=== PATIENT | female | born 1990 | race Caucasian/White ===

== ENCOUNTER 2016-11-07 11:42 | Observation (INO) | payer OTHER ==
[~2016-11-07] VITALS: Ht 162.6 cm; Wt 120.1 kg
[2016-11-07] MEDS ORDERED: 0.9% Sodium Chloride 1,000 ML IV ONE (11:51)
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
[2016-11-07] MEDS ORDERED: Ondansetron 2 mg/mL 2 mL Inj IVPUSH PRN (11:55)
[2016-11-07] MEDS: HYDROmorphone 1 mg/mL Inj IVPUSH PRN ×2 (12:05→13:59)
[2016-11-07 12:21] LABS: BASOPHILS % (AUTO) 0.1 % (0-3); EOSINOPHILS % (AUTO) 0.6 % (0-5); MONOCYTES % (AUTO) 6.5 % (4-12); Mean Corpuscular Hemoglobin 31.3 pg (27.0-35.0); Mean Corpuscular Volume 90.8 fL (81-100); NEUTROPHILS % (AUTO) 66.3 % (40-74); Platelet Count 252 bil/L (150-400)
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
[2016-11-07 15:24] LABS: APPEARANCE,URINE CLEAR (CLEAR,HAZY); COLOR,URINE YELLOW (YELLOW); PH,URINE 5.5 (5.0-8.0)
[2016-11-07 15:25] LABS: OCCULT BLOOD,URINE LARGE (NEGATIVE); UROBILINOGEN,URINE NORMAL (NORMAL)
[2016-11-07 16:02] LABS: Lipase 63 U/L (13-60)
[2016-11-07] MEDS ORDERED: MetoCLOpramide 5 mg/mL 2 mL Inj IVPUSH PRN (16:10)
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
[2016-11-07] MEDS ORDERED: HYDR-4003 PO (16:31)
[2016-11-07] MEDS ORDERED: CYCL10TA9 PO (16:31)
[2016-11-07] MEDS ORDERED: AGM875T PO (16:31)
[2016-11-07] MEDS: HYDROcodone-APAP 5-325 mg Tablet PO PRN ×3 (16:31→22:06)
[2016-11-07] MEDS ORDERED: Bacitracin Ointment Packet TOPICAL ONE (16:35)
[2016-11-07 17:32] VITALS: BP 116/77; PULSE 69; RESP 18; O2SAT 98
[2016-11-07] MEDS: Dextrose 5% Lactated Ringer's 1,000 ML IV SCH (18:41)
[2016-11-07] MEDS: Polyethylene Glycol (PEG) 17 Gm Powder PO SCH (18:41)
[2016-11-07 19:22] VITALS: BP 127/83; PULSE 67; RESP 18; O2SAT 98
[2016-11-07] MEDS: Amoxicillin-Clav 875-125 mg Tablet PO SCH (22:05)
[2016-11-07] MEDS: Ondansetron 2 mg/mL 2 mL Inj IVPUSH PRN (22:11)
[2016-11-08] VITALS (16 sets, daily range): BP systolic 102–151; BP diastolic 53–89; PULSE 71–89; RESP 12–22; O2SAT 92–99
[2016-11-08] MEDS: Ondansetron 2 mg/mL 2 mL Inj IVPUSH PRN ×3 (02:13→14:41)
[2016-11-08] MEDS: HYDROmorphone 1 mg/mL Inj IVPUSH PRN ×4 (02:16→14:33)
[2016-11-08] MEDS: Dextrose 5% Lactated Ringer's 1,000 ML IV SCH ×3 (05:26→22:06)
[2016-11-08] MEDS ORDERED: Vancomycin Inj 1,000 MG in IV Premix 1 EACH IV ONE ×2 (06:00→15:45)
[2016-11-08] MEDS: Amoxicillin-Clav 875-125 mg Tablet PO SCH ×2 (08:21→22:46)
[2016-11-08] MEDS: HYDROcodone-APAP 5-325 mg Tablet PO PRN (08:22)
[2016-11-08 09:55] LABS: BASOPHILS % (AUTO) 0.1 % (0-3); EOSINOPHILS % (AUTO) 0.7 % (0-5); MONOCYTES % (AUTO) 7.8 % (4-12); Mean Corpuscular Volume 90.5 fL (81-100); NEUTROPHILS % (AUTO) 71.5 % (40-74); Platelet Count 219 bil/L (150-400)
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
--- NOTE | 2016-11-08 14:41 | CONS ---
[address] [address] CONSULTATION REPORT PATIENT: MIGUELITO MIRAMONTES : 1990 MR#: [id number] ADMIT: 11/07/2016 JOB ID: [id number] DATE OF SERVICE: 11/08/2016 This is 26-year-old female who was admitted overnight since she did have some fluid around the head of her pancreas. She was also slow to mobilize since she had injuries on both lower extremities with a right ankle sprain, chip avulsion off the medial 1st metatarsal on the right and left ankle bimalleolar equivalent fracture. I have obtained preoperative clearance from General Surgery. Since the patient is still in the hospital, we will try to proceed with surgery today and this will depend upon any other emergencies that may come in. I have explained the risks for bleeding, infection, pain, and stiffness, possibility for damage to surrounding neurovascular structures, potential for delayed union, nonunion, malunion, hardware failure, as well as potential for requirement for hardware removal if need be. She may also have a syndesmosis injury and this will be evaluated intraoperatively once the lateral malleolus is fixed. If she requires a syndesmosis screw, then I would opt to take that out somewhere between 3-4 months. Surgical consent has been signed. CC: [facility]
[2016-11-08] MEDS ORDERED: Lactated Ringer's 1,000 ML IV ONE ×2 (15:54→19:10)
[2016-11-08] MEDS ORDERED: Lactated Ringer's 1,000 ML IV SCH (16:20)
[2016-11-08] MEDS ORDERED: Ondansetron 2 mg/mL 2 mL Inj IVPUSH PRN ×2 (16:20→18:55)
[2016-11-08] MEDS ORDERED: EPHEDrine Sulfate 50 mg/mL Inj IVPUSH PRN (16:20)
[2016-11-08] MEDS ORDERED: Phenylephrine 10,000 mCg/mL Inj IVPUSH PRN (16:20)
[2016-11-08] MEDS ORDERED: MetoCLOpramide 5 mg/mL 2 mL Inj IVPUSH PRN (16:20)
[2016-11-08] MEDS ORDERED: Lactated Ringer's 500 ML IV PRN (16:20)
[2016-11-08] MEDS ORDERED: HYDROmorphone 1 mg/mL Inj IVPUSH PRN (16:20)
[2016-11-08] MEDS ORDERED: Labetalol 5 mg/mL 20 mL Inj IV PRN (16:20)
[2016-11-08] MEDS ORDERED: fentaNYL-PF 50 mCg/mL 2 mL Inj IVPUSH PRN (16:20)
[2016-11-08] MEDS ORDERED: Atropine 0.4 mg/mL Inj IVPUSH PRN (16:20)
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
[2016-11-08] MEDS ORDERED: Bupivacaine-MPF 0.5% 30 mL Inj INJ ONE (16:32)
[2016-11-08] MEDS ORDERED: Ondansetron 2 mg/mL 2 mL Inj ONE (16:37)
[2016-11-08] MEDS ORDERED: fentaNYL-PF 50 mCg/mL 2 mL Inj ONE (16:37)
[2016-11-08] MEDS ORDERED: MetoCLOpramide 5 mg/mL 2 mL Inj ONE (16:37)
[2016-11-08] MEDS ORDERED: Propofol 10,000 mCg/mL 20 mL Inj ONE (16:37)
[2016-11-08] MEDS ORDERED: Dexamethasone 4 mg/mL Inj ONE (16:37)
[2016-11-08] MEDS ORDERED: HYDROmorphone 1 mg/mL Inj ONE (16:37)
[2016-11-08] MEDS ORDERED: Sodium Biphos-Phos 133 mL Enema RECTAL PRN (18:55)
[2016-11-08] MEDS ORDERED: Polyethylene Glycol (PEG) 17 Gm Powder PO PRN (18:55)
[2016-11-08] MEDS ORDERED: diphenhydrAMINE 25 mg Capsule PO PRN (18:55)
[2016-11-08] MEDS ORDERED: Vancomycin Dose per Pharmacist XX ONE (18:55)
[2016-11-08] MEDS ORDERED: Magnesium Hydroxide 10 mL Oral Concentration PO PRN (18:55)
[2016-11-08] MEDS: 0.9% Sodium Chloride 1,000 ML IV SCH (18:55)
[2016-11-08] MEDS ORDERED: hydrOXYzine Inj 50 MG/1 mL SDV IM ONE (19:30)
--- NOTE | 2016-11-08 19:30 | PCM.ANEP1 ---
Post Anesthesia PACU Phase 1 Assessment Vital Signs Vital Signs Date Time Temp Pulse Resp B/P Pulse Ox O2 Delivery O2 Flow Rate FiO2 11/08/16 19:20 77 12 115/76 99 Nasal Cannula 3 11/08/16 19:15 36.1 72 12 113/66 98 Nasal Cannula 3 11/08/16 19:10 72 12 122/62 95 Nasal Cannula 3 11/08/16 19:05 73 14 117/89 95 Nasal Cannula 3 11/08/16 19:01 74 14 118/63 95 Nasal Cannula 3 11/08/16 18:55 71 22 151/87 92 Room Air 11/08/16 18:50 84 22 124/67 92 Room Air 11/08/16 18:47 37.1 88 22 125/71 92 Room Air 11/08/16 12:22 36.7 72 18 121/77 97 Room Air Anesthetic Administered: GA Level of Alertness: Awake, talking GONZALES's with Equal Strength: Yes Pain: Yes Pain Scale Score: 6 Nausea or Vomiting: Yes (getting IM vistaril/ephedrine in PACU) CV Function & Hydration Stable: Yes Airway Device: n/a Oxygen Delivery: Room Air Lungs: Clear to Auscultation, Diminished Dermatome Level: Full Sensation PACU Phase 2 Assessment Complications: No Follow up Care: N/A Patient Instructions Provided: N/A Jaycob Radford MD Nov 08, 2016 19:30
[2016-11-08] MEDS ORDERED: HYDROmorphone 0.5 mg/0.5 mL iSecure Syringe IVPUSH PRN (19:50)
--- NOTE | 2016-11-08 21:36 | DRSVH ---
PROCEDURE: X-RAY LEFT ANKLE, TWO VIEWS ([id number]) INDICATIONS: LEFT ANKLE ORIF REPAIR TECHNIQUE: 3 views of the ankle were acquired. COMPARISON: [facility], CR, XR ANKLE 3VW LT, 11/07/2016, 11:57. FINDINGS: 3 intraoperative fluoroscopic views demonstrate ORIF of the previously described fibular fracture wit h a lateral fixation plate and multiple fixation screws. There is also a screw traversing the distal tibiofibular syndesmosis. IMPRESSION: 1. Intraoperative fluoroscopy provided for ORIF of left fibular fracture. Dictated by: Hakeem Ventura M.D. on 11/08/2016 at 21:33 Approved by: Hakeem Ventura M.D. on 11/08/2016 at 21:34
--- NOTE | 2016-11-08 21:38 | DRSVH ---
PROCEDURE: X-RAY LEFT ANKLE, MINIMUM THREE VIEWS ([id number]) INDICATIONS: Post operation ankle fracture ORIF TECHNIQUE: 3 views of the ankle were acquired. COMPARISON: [facility], CR, XR ANKLE 3VW LT, 11/07/2016, 11:57. [facility], CR, XR ANKLE 2VW LT, 11/08/2016, 17:55. FINDINGS: Bones: There are postsurgical changes status post ORIF of the previously described distal fibular fr acture. This includes a lateral fixation plate with multiple fixation screws as well as a fixation s crew traversing the tibiofibular syndesmosis. The ankle mortise appears preserved. Soft tissues: There is periarticular soft tissue swelling. An external cast is present limiting buddy luation. IMPRESSION: 1. Improved alignment status post ORIF of distal fibular fracture as described. Dictated by: Hakeem Ventura M.D. on 11/08/2016 at 21:34 Approved by: Hakeem Ventura M.D. on 11/08/2016 at 21:36
[2016-11-08] MEDS: Senna-Docusate 8.6-50 mg Tablet PO SCH (22:43)
[2016-11-09 01:11] VITALS: BP 112/67; PULSE 81; RESP 18; O2SAT 95
[2016-11-09 04:27] VITALS: BP 115/77; PULSE 85; RESP 18; O2SAT 99
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
[2016-11-09] MEDS ORDERED: POLY17PO6 PO (06:21)
[2016-11-09] MEDS ORDERED: HYDR-4003 PO (06:21)
--- NOTE | 2016-11-09 06:25 | PCM.DISURG ---
Surgical Discharge Instruction Date of Service Nov 09, 2016 Dates of Hospitalization Date of Hospital Admission Nov 07, 2016 at 16:36 Providers Admitting Physician: Kaiser Ross MD Primary Care Physician: Kelly Mohan PA-C Attending Physician: Kaiser Ross MD Discharge Diagnosis Discharge Diagnosis pancreatic contusion, left fibula fracture, right first metatarsal head fracture Diet Discharge Diet: No restrictions Activity Discharge Activity-General: Other (Nonweightbearing to LLE for 2 weeks) Dressing and Incisional Care Dressing Instructions: as per Orthopedics instructions Follow Up Plan Follow Up Plan with Orthopedic surgery in 2 weeks Call your provider for: Fever (over 101.5F), Vomiting, Discharge @ incision, pus discharge Kaiser Ross MD Nov 09, 2016 06:25
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
[2016-11-09] MEDS: 0.9% Sodium Chloride 1,000 ML IV SCH (07:25)
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
[2016-11-09] MEDS ORDERED: LOV40 SUBQ (08:47)
--- NOTE | 2016-11-09 08:48 | PCM.DIORTH ---
Ortho Discharge Instruction Date of Service: Nov 09, 2016 Dates of Hospitalization Date of Hospital Admission Nov 07, 2016 at 16:36 Providers Admitting Physician: Kaiser Ross MD Primary Care Physician: Kelly Mohan PA-C Attending Physician: Kaiser Ross MD Activity Discharge Activity-General: Be up and about, Elevate & ice extremity Right Lower Extremity: Weight Bearing as tolerated Left Lower Extremity: Non-weight Bearing Discharge Assist Device: Front Wheeled Walker Dressing and Incisional Care Discharge Dressing Care: Keep dressing clean, dry & intact Discharge Hygiene: May shower Additional Instructions Discharge Instructions Weightbearing: Weight-bear as tolerated in the walking boot on the right lower extremity, nonweightbearing in splint on the left lower extremity DVT prophylaxis: Lovenox 40 mg subcutaneous once a day x3 weeks Wound care: Keep splint on left lower extremity clean dry and intact do not remove. We will transition into a short leg cast at 2 week follow-up. Immobilization: Keep right splint on right leg. Keep left ankle in boot while ambulating, may remove to ice or bathe. Shower instructions: Keep right leg splint clean and dry, cover when showering. DO NOT GET WET. Analgesia: Percocet 5/325 mg 1 tab every 4 hours. Follow-up plan: In 2 weeks at [facility] with MARIA ANTONIA for wound check and transition to a short leg cast, xrays will be performed at this visit. Then follow-up at 6 weeks post-operatively with Dr. Dean with x-rays, will likely being weightbearing at this time. Ladi Espinal PA-C Nov 09, 2016 08:48
[2016-11-09] MEDS: Senna-Docusate 8.6-50 mg Tablet PO SCH (09:37)
[2016-11-09] MEDS: Polyethylene Glycol (PEG) 17 Gm Powder PO SCH (09:38)
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
[2016-11-09] MEDS ORDERED: Vancomycin Inj 1,000 MG in IV Premix 1 EACH IV ONE (14:00)
== END 2016-11-09 11:00 | disposition home or self-care (01) ==
LOC: SED 11:42 → OSC 16:36
PROVIDERS: ADMIT Student in an Organized Health Care Education/Training Program; ATTEND Student in an Organized Health Care Education/Training Program
DX: S36.220A Contusion of head of pancreas, initial encounter (principal); S82.842A Displaced bimalleolar fracture of left lower leg, initial encounter for closed fracture; S93.432A Sprain of tibiofibular ligament of left ankle, initial encounter; S92.311A Displaced fracture of first metatarsal bone, right foot, initial encounter for closed fracture; S81.011A Laceration without foreign body, right knee, initial encounter; S93.491A Sprain of other ligament of right ankle, initial encounter; V43.51XA Car driver injured in collision with sport utility vehicle in traffic accident, initial encounter; Y92.410 Unspecified street and highway as the place of occurrence of the external cause; Y93.89 Activity, other specified; Y99.8 Other external cause status; F17.210 Nicotine dependence, cigarettes, uncomplicated; F12.90 Cannabis use, unspecified, uncomplicated
CPT/HCPCS: 12002; 27814; 27829; 36415; 71010; 71260; 72125; 73560; 73590; 73600; 73610; 73630; 73700; 74177; 76001; 80053; 81001; 81002; 81025; 82150; 83690; 84703; 85025; 86850; 87641; 93005; 96372; 96374; 96375; 96376; 97161; 99285; C1713; G0480; J1100; J1170; J1650; J2250; J2405; J2704; J2765; J3010; J3370; J7030; J7120; Q9967